=== PATIENT | female | born 1965 | race Caucasian/White ===

== ENCOUNTER 2016-11-27 01:03 | Day surgery (SDC) | payer OTHER ==
[2016-11-27] VITALS (13 sets, daily range): BP systolic 105–131; BP diastolic 59–86; PULSE 55; RESP 12–18; O2SAT 95–100
[~2016-11-27] VITALS: Ht 157.5 cm; Wt 62.2 kg
[~2016-11-27 01:03] MED LIST: ACYC400T2 PO; CYCL5TAB PO; DESO15CR25 TOP; DICL100G8 TOPICAL; FLUT9.9S NOSTRIL; GABA-502 PO; METO25TA6 PO; OMEP20CA11 PO; SIMV20TA4 PO; TOBR3.5O2 AFFECT_EYE; TRAZ-118 PO
[2016-11-27 14:05] LABS: BASOPHILS % (AUTO) 0.6 % (0-3); EOSINOPHILS % (AUTO) 1.9 % (0-5); Mean Corpuscular Volume 93.4 fL (81-100); NEUTROPHILS % (AUTO) 47.4 % (40-74); Platelet Count 231 bil/L (150-400)
[2016-11-27 14:30] LABS: INR 0.94 ratio
[2016-11-27] MEDS ORDERED: Bupivacaine-MPF 0.5% 30 mL Inj ONE (15:24)
[2016-11-27] MEDS ORDERED: Heparin 10,000 Unit/1,000 mL NS Premix IV ONE (15:24)
[2016-11-27] MEDS ORDERED: Vancomycin 1,000 mg Inj ONE (15:24)
[2016-11-27] MEDS ORDERED: 0.9% Sodium Chloride 250 ML ONE (15:24)
[2016-11-27] MEDS ORDERED: fentaNYL-PF 50 mCg/mL 2 mL Inj ONE (16:02)
--- NOTE | 2016-11-27 16:30 | NUR ---
[facility] Admit to [facility] at 1330 for pacemaker generator change. at bedside. Patient denies pain. HL placed and labs drawn. Consent by MD. History and medications reviewed. Pre-procedure teaching done and questions answered.
[2016-11-27] MEDS ORDERED: 0.9% Sodium Chloride 1,000 ML IV SCH (16:48)
[2016-11-27] MEDS ORDERED: ALPR1TAB2 PO (18:53)
[2016-11-27] MEDS ORDERED: DABI150C PO (18:53)
[2016-11-27] MEDS ORDERED: Alum-Mag Hydrox-Simeth 30 mL Suspension ONE (19:13)
--- NOTE | 2016-11-27 19:19 | OP ---
[address] [address] OPERATIVE REPORT PATIENT: MIGUEL CID : [id number] MR#: [id number] ADMIT: 11/27/2016 JOB ID: [id number] DATE OF SURGERY: 11/27/2016 PREOPERATIVE DIAGNOSIS(ES): Dual-chamber pacemaker battery depletion. POSTOPERATIVE DIAGNOSIS(ES): Dual-chamber pacemaker battery depletion. PROCEDURES PERFORMED: 1. Dual-chamber pacemaker generator replacement. 2. Pocket revision. SURGEON: Thread Singer: Adama Flores MD, electrophysiology attending CHIEF DIETITIAN: Jordyn Penn. IMPLANTED DEVICE: [employer] Accolade pulse generator, model L3312, serial number [id number]. EXPLANTED DEVICE: Guidant 1291 pulse generator, serial number [id number]. CHRONIC DEVICES: 1. Guidant Fine Line, right atrial lead model 4469, serial number [id number]. 2. Guidant Fine Line, RV lead model 4470, serial number [id number]. ANESTHESIA: Bolus dosing of Versed and fentanyl was utilized for an appropriate level of sedation. INDICATION: The patient is a pleasant 51-year-old woman with a history of sick sinus syndrome whose dual-chamber pacemaker has reached DOMO. After a discussion of the risks and benefits of pacemaker generator replacement, she opted to proceed. PROCEDURAL DESCRIPTION: Following informed consent, the patient was taken to the OR in the fasting nonsedated state where she was prepped and draped in sterile fashion. The left infraclavicular surgical scar was infiltrated with 40 mL of a 50/50 mixture of bupivacaine and lidocaine. Once adequate anesthesia had been achieved, a 3 cm incision was performed overlying the previous surgical scar. Dissection was carried down to the capsule and the generator was freed loose of adhesions. The leads were inspected and found to be intact. The pocket was infiltrated with more lidocaine inferiorly and medially and extended to accommodate the larger footprint of the new device. The pocket was then copiously irrigated with antibiotic solution. The two chronic leads were connected to a new pulse generator. The leads were tested through the generator and showed excellent sensing thresholds and stable impedances. The entire system was then replaced into the capsule and the generator secured to the floor of the capsule using 1-0 Ti-Cron suture. The incision was closed with running layers of absorbable suture. The wound was dressed with skin adhesive and a small dressing. At the end of the procedure the needle, sponge, and instrument counts were all correct. COMPLICATIONS: None. ESTIMATED BLOOD LOSS: Negligible. DEVICE MEASURED DATA: 1. Right atrial lead 3.3 mV, 0.3 V at 0.4 msec, 469 ohms. 2. RV lead 11.3 mV, 1.1 V at 0.4 msec, 394 ohms. FINAL PROGRAM PARAMETERS: DDI over 55 beats per minute. IMPRESSION: Successful dual-chamber pacemaker generator replacement. PLAN: 1. Recovery and discharge from the [facility]. 2. Doxycycline 100 mg p.o. daily x7 days. 3. Wound check in one week. ATTENDING STATEMENT: Adama Flores MD, electrophysiology attending, was present for and supervised/performed all aspects of this procedure.
--- NOTE | 2016-11-27 19:41 | NUR ---
[facility] Patient returned from hemodialysis lab technician/ pacemaker generator change at 171. Patient initially denies pain and is awake and resting quietly with SO at bedside. No bleeding or hematoma at left chest incision site. When ready to discharge at 191 patient reports having developed 6/10 mid sternal CP after eating. MD notified, ECG obtained and Mylanta given. Pain resolved with Mylanta then briefly returned at a 2/10 and then completely resolved. MD notified and patient discharged home with instructions to call 911 if she develops persistent CP. Other discharge instructions reviewed with patient and SO, written information given and questions answered. Home with SO at 1940.
== END 2016-11-27 23:59 | disposition home or self-care (01) ==
LOC: SOUO 01:03 → EDSTATUS 14:32 → SOUO 23:59
PROVIDERS: ATTEND Internal Medicine Cardiovascular Disease
DX: Z45.010 Encounter for checking and testing of cardiac pacemaker pulse generator [battery] (principal); I49.5 Sick sinus syndrome; I10 Essential (primary) hypertension; M79.7 Fibromyalgia; M48.02 Spinal stenosis, cervical region; Z87.891 Personal history of nicotine dependence
CPT/HCPCS: 33228; 36415; 80048; 85025; 85610; 93005; 99152; 99153; C1785; J1644; J2250; J3010; J3370; J7050